=== PATIENT | male | born 1935 | race Caucasian/White ===

== ENCOUNTER → 2016-12-07 | Outpatient (CLI) | payer OTHER, MEDICARE | LOC: BHFA 10:45 | PROVIDERS: ATTEND Internal Medicine Interventional Cardiology | DX: I48.91 Unspecified atrial fibrillation (principal); I25.10 Atherosclerotic heart disease of native coronary artery without angina pectoris; I42.6 Alcoholic cardiomyopathy ==

== ENCOUNTER → 2017-01-11 | Outpatient (CLI) | payer OTHER, MEDICARE | LOC: BHFA 10:45 | PROVIDERS: ATTEND Internal Medicine | DX: I48.91 Unspecified atrial fibrillation (principal) ==